=== PATIENT | male | born 1995 | race Caucasian/White ===

== ENCOUNTER 2017-10-19 14:02 | Emergency (ER) | payer OTHER ==
[2017-10-19 15:13] LABS: ABS Basophils 0.1 10^3/ul (0-0.2); ABS Eosinophils 0 10^3/ul (0-0.6); ABS Lymphocytes 1.2 10^3/ul (1.0-4.8); ABS Monocytes 0.5 10^3/ul (0-0.8); ABS Neutrophils 6.1 10^3/ul (1.5-7.7); ABS Nucleated RBC 0 10^3/ul; Eosinophil % 0.1 % (0-6); Hematocrit 37 % (42-52); Lymphocyte % 15.7 % (25-47); Mean Corpuscular HGB Conc 35 g/dl (31-36); Mean Corpuscular Hemoglobin 33 pg (27-31); Mean Corpuscular Volume 93 fL (80-94); Mean Platelet Volume 9.2 um3 (7.4-10.4); Nucleated Red Blood Cells % 0; Platelet Count 204 10^3/ul (150-450); Red Cell Distribution Width 13 % (10.5-15); White Blood Count 7.9 10^3/ul (3.5-10.8)
[2017-10-19 15:22] LABS: Urine Appearance Cloudy; Urine Blood Negative (Negative); Urine Color Yellow; Urine Ketones 1+ (Negative); Urine Protein 1+(30 mg/dL) (Negative); Urine Specific Gravity 1.028 (1.010-1.030); Urine Urobilinogen Negative (Negative)
[2017-10-19 15:28] LABS: EGFR Non-African American 127.5 (>60)
[2017-10-19] MEDS ORDERED: hydrOXYzine HCL TAB* 25 MG PO ONE (19:22)
[2017-10-19 20:17] VITALS: BP 116/64
--- NOTE | 2017-10-19 22:33 | ED ---
Phil Kelsey Stephanie, scribed for Cara Oswald MD on 10/19/17 at 1428 . Psychiatric Complaint - HPI Summary HPI Summary: The pt is a 22 y/o M BIBA to the ED with c/o anxiety that began today. The pt states he is stressed due to academics at [employer]. The pt states he was not realistically thinking about suicide. The pt was talking with a [employer] nurse who called the police who then notified EMS based on statements he made to her. Pt came to the ED voluntarily. The pt denies hx of mental health evaluation or consult in the past. The pt denies hx of self-harm. The pt denies CP, SOB, CLARKE and dizziness. The pt is a transgender pt who is in the process of transitioning to a female. - History Of Current Complaint Time Seen by Provider: 10/19/17 14:24 Hx Obtained From: Patient, EMS Onset/Duration: Gradual Onset, Lasting Hours, Still Present Timing: Constant Severity Initially: Moderate Severity Currently: Mild Character: Depressed Aggravating Factor(s): Recent Stress - academics Alleviating Factor(s): Nothing Associated Signs And Symptoms: Positive: Negative Related History: Negative For: Prior Psychiatric Issues, Drug Abuse Counseling, Admissions Related To Substance Abuse Has Suicidal: Reports: Thoughts - Allergies/Home Medications Allergies/Adverse Reactions: Allergies Allergy/AdvReac Type Severity Reaction Status Date / Time No Known Allergies Allergy Verified 10/19/17 14:22 Home Medications: Home Medications Spironolactone TAB* [Aldactone TAB 25 MG*] 100 mg PO DAILY 10/19/17 [History Confirmed 10/19/17] PMH/Surg Hx/FS Hx/Imm Hx Previously Healthy: Yes - transgender transitioning to female Sensory History: Denies: Hx Legally Blind EENT History: Denies: Hx Deafness - Surgical History Surgery Procedure, Year, and Place: FINGER SURGERY Infectious Disease History: Yes Infectious Disease History: Denies: Traveled Outside the [place] in Last 30 Days - Family History Known Family History: Positive: Other - back problems. Negative: SI and depression Negative: Diabetes - Social History Occupation: Student Lives: Dormitory/Roommates Alcohol Use: Occasionally Hx Substance Use: No Substance Use Type: Reports: None Hx Tobacco Use: No Review of Systems Negative: Fever Negative: Chest Pain Negative: Shortness Of Breath Gastrointestinal: Negative Neurological: Negative - dizziness Negative: Headache Positive: Depressed All Other Systems Reviewed And Are Negative: Yes Physical Exam - Summary Physical Exam Summary: Appearance: Well-appearing, no pain distress, Well-nourished, avoids eye contact Skin: Warm, color reflects adequate perfusion Head: Normal Head/Face inspection Eyes: Conjunctiva clear ENT: Normal inspection Neck: Supple, no nodes, no JVD. Respiratory: Lungs clear, Normal breath sounds, no respiratory distress Cardio: RRR, No murmur, pulses normal, brisk capillary refill Abdomen: soft, nontender Bowel sounds: present Musculoskeletal: Strength Intact/ ROM intact. No calf tenderness. No edema. Psychological: calm, cooperative Neuro: Alert, muscle tone normal, no focal deficit Triage Information Reviewed: Yes Vital Signs On Initial Exam: Initial Vitals Temp Pulse Resp BP Pulse Ox 99.2 F 71 18 121/76 100 10/19/17 14:14 10/19/17 14:14 10/19/17 14:14 10/19/17 14:14 10/19/17 14:14 Vital Signs Reviewed: Yes Diagnostics - Vital Signs Vital Signs Temp Pulse Resp BP Pulse Ox 10/19/17 14:14 99.2 F 71 18 121/76 100 - Laboratory Result Diagrams: 10/19/17 14:58 10/19/17 14:58 Lab Statement: Any lab studies that have been ordered have been reviewed, and results considered in the medical decision making process. Re-Evaluation - Re-Evaluation First Eval Re-Evaluation Time: 19:35 - pt feels ready for discharge, less stressed. Took hydroxyzine 25mg without adverse effect. Change: Improved Course/Dx - Course Course Of Treatment: At 15:50 the pt was medically cleared. Pt had MHE. Per Dr. Jc, pt stable for discharge, per Antonia, RN. Pt given hydroxyzine 25mg prior to DC for anxiety, and Rx sent for 6 more tabs to pt's pharmacy. Pt to follow up with [facility]. - Differential Dx/Clinical Impression Differential Diagnosis/HQI/PQRI: Positive: Anxiety, Depression, Suicidal Ideation Provider Diagnosis: Mood disorder Discharge - Sign-Out/Discharge Documenting (check all that apply): Discharge/Admit/Transfer - home to [employer] - Discharge Plan Condition: Stable Disposition: HOME Prescriptions: hydrOXYzine HCL TAB* [Atarax 25 MG TAB*] 25 mg PO QID PRN #6 tab PRN Reason: Anxiety Patient Education Materials: Mood Disorders (ED), Social Anxiety Disorder (ED) Referrals: [facility] - [facility] [Primary Care Provider] - As Soon As Possible Additional Instructions: RETURN TO THE ER FOR ANY NEW OR WORSENING SYMPTOMS - Billing Disposition and Condition Condition: STABLE Disposition: HOME The documentation as recorded by the Phil france Stephanie accurately reflects the service I personally performed and the decisions made by , Cara Oswald MD.
== END 2017-10-19 20:16 | disposition home or self-care (01) ==
LOC: ED 14:02
DX: F39 Unspecified mood [affective] disorder (principal); F64.0 Transsexualism
CPT/HCPCS: 36415; 80053; 80307; 80320; 80329; 81003; 81015; 84443; 85025; 99283; A9270-GY; G0480

== ENCOUNTER 2018-05-02 15:31 | Inpatient (IN) | payer OTHER ==
[2018-05-02] MEDS ORDERED: Nicotine Inhaler* 10 MG AMP INH PRN (15:46)
--- NOTE | 2018-05-02 15:47 | UC ---
Psychiatric Complaint HPI - History Of Current Complaint Stated Complaint: 941 Time Seen by Provider: 05/02/18 15:36 - Allergies/Home Medications Allergies/Adverse Reactions: Allergies Allergy/AdvReac Type Severity Reaction Status Date / Time No Known Allergies Allergy Verified 04/02/18 17:02 PMH/Surg Hx/FS Hx/Imm Hx - Surgical History Surgical History: Unable to Obtain/Confirm Surgery Procedure, Year, and Place: FINGER SURGERY - Family History Known Family History: Positive: Other - back problems. Negative: SI and depression Negative: Diabetes - Social History Alcohol Use: None Substance Use Type: None Smoking Status (MU): Never Smoked Tobacco - Immunization History Most Recent Influenza Vaccination: unknown Most Recent Pneumonia Vaccination: unknown Discharge - Discharge Plan Referrals: [facility] - [facility]A [Primary Care Provider] - - Attestation Statements Document Initiated by Scribe: Yes Documenting Scribe: Leana Bo Provider For Whom Scribe is Documenting (Include Credential): Dr. London Reyes MD Scribe Attestation: Leana Kelsey scribed for Dr. London Reyes MD on 05/02/18 at 1546.
--- NOTE | 2018-05-02 15:53 | ED ---
Psychiatric Complaint - HPI Summary HPI Summary: Level 5 caveat: Unable to obtain complete HPI due to AMS The pt is a 22 y/o transgender [id number] BIB[facility] to [facility] c/o of AMS since today. The pt gave the police and EMS incorrect personal information such as name and . The pt prefers she /her pronouns. She says her name is Herson and notes confusion, insomnia, and fatigue. The pt currently takes unidentified anti-insomnia medications. TShe has been previously hospitalized at [facility] and at [facility] for psychiatric issues. - History Of Current Complaint Chief Complaint: EDMentalHealth Time Seen by Provider: 05/02/18 15:36 Hx Obtained From: Patient, EMS, Other: - [facility] Police Hx From Patient Unobtainable Due To: Altered Mental Status Onset/Duration: Still Present Associated Signs And Symptoms: Positive: Confused Related History: Positive For: Prior Psychiatric Issues - Allergies/Home Medications Allergies/Adverse Reactions: Allergies Allergy/AdvReac Type Severity Reaction Status Date / Time No Known Allergies Allergy Verified 04/02/18 17:02 PMH/Surg Hx/FS Hx/Imm Hx Previously Healthy: No - Level 5 caveat: Unable to obtain complete Mhx due to AMS Endocrine/Hematology History: Denies: Hx Diabetes Cardiovascular History: Denies: Hx Hypertension Sensory History: Denies: Hx Contacts or Glasses, Hx Legally Blind, Hx Deafness, Hx Hearing Aid Opthamlomology History: Denies: Hx Contacts or Glasses, Hx Legally Blind Psychiatric History: Reports: Hx Attention Deficit Hyperactivity Disorder Denies: Hx Eating Disorder, Hx of Violent Episodes Against Others - Cancer History Cancer Type, Location and Year: None reported - Surgical History Surgery Procedure, Year, and Place: FINGER SURGERY Infectious Disease History: No Infectious Disease History: Denies: Traveled Outside the [place] in Last 30 Days - Family History Known Family History: Positive: Other - back problems. Negative: SI and depression Negative: Diabetes - Social History Occupation: Student Lives: With Family Alcohol Use: None Hx Substance Use: No Substance Use Type: Reports: None Hx Tobacco Use: No Smoking Status (MU): Never Smoked Tobacco - Additional Comments History Additional Comments: Mhx of insomnia Review of Systems - ROS Summary Review of Systems Summary: Level 5 caveat: Unable to obtain complete ROS due to AMS Constitutional: Other - Positive: Confusion, Insomnia Positive: Fatigue All Other Systems Reviewed And Are Negative: No Physical Exam - Summary Physical Exam Summary: Level 5 caveat: Unable to obtain complete PE due to AMS Appearance: The patient is well-nourished in no acute respiratory distress and in no acute pain. Skin: The skin is warm and dry and skin color reflects adequate perfusion. HEENT: The head is normocephalic and atraumatic. The pupils are equal and reactive. The conjunctivae are clear and without drainage. Nares are patent and without drainage. Mouth reveals moist mucous membranes and the throat is without erythema and exudate. The external ears are intact. The ear canals are patent and without drainage. The tympanic membranes are intact. Neck: The neck is supple with full range of motion and non-tender. There are no carotid bruits. There is no neck vein distension. Respiratory: Chest is non-tender. Lungs are clear to auscultation and breath sounds are symmetrical and equal. Cardiovascular: Heart is regular rate and rhythm. There is no murmur or rub auscultated. There is no peripheral edema and pulses are symmetrical and equal. Abdomen: The abdomen is soft and non-tender. There are normal bowel sounds heard in all four quadrants and there is no organomegaly palpated. Musculoskeletal: There is no back tenderness noted. Extremities are non-tender with full range of motion. There is good capillary refill. There is no peripheral edema or calf tenderness elicited. Neurological: Patient is alert and oriented to person, place and time. The patient has symmetrical motor strength in all four extremities. Cranial nerves are grossly intact. Deep tendon reflexes are symmetrical and equal in all four extremities. Psychiatric: The patient has an appropriate affect and does not exhibit any anxiety or depression. Triage Information Reviewed: Yes Vital Signs On Initial Exam: Initial Vitals Temp Pulse Resp BP Pulse Ox 99.1 F 87 19 129/71 99 05/02/18 15:37 05/02/18 15:37 05/02/18 15:37 05/02/18 15:37 05/02/18 15:37 Vital Signs Reviewed: Yes Diagnostics - Vital Signs Vital Signs Temp Pulse Resp BP Pulse Ox 05/02/18 15:37 99.1 F 87 19 129/71 99 - Laboratory Result Diagrams: 05/02/18 16:05 05/02/18 16:05 Lab Statement: Any lab studies that have been ordered have been reviewed, and results considered in the medical decision making process. Course/Dx - Course Course Of Treatment: 17:08- The pt has been medically cleared for a MHE - Differential Dx/Clinical Impression Provider Diagnosis: Histrionic personality, Gender dysphoria in adult, Bipolar 1 disorder Discharge - Sign-Out/Discharge Documenting (check all that apply): Sign-Out Patient Signing out patient TO: Karina Glaser - Discharge Plan Condition: Stable Referrals: [facility] [Primary Care Provider] - - Billing Disposition and Condition Condition: STABLE - Attestation Statements Document Initiated by Scribe: Yes Documenting Scribe: Leana Bo Provider For Whom Bradlyibgurmeet is Documenting (Include Credential): Dr. London Reyes MD Scribe Attestation: Leana Kelsey scribed for Dr. London Reyes MD on 05/02/18 at 2117. Scribe Documentation Reviewed: Yes Provider Attestation: The documentation as recorded by the bradlyibeLeana accurately reflects the service I personally performed and the decisions made by me, Dr. London Reyes MD
[2018-05-02 16:16] LABS: ABS Basophils 0.1 10^3/ul (0-0.2); ABS Eosinophils 0 10^3/ul (0-0.6); ABS Monocytes 0.5 10^3/ul (0-0.8); ABS Neutrophils 7.3 10^3/ul (1.5-7.7); ABS Nucleated RBC 0 10^3/ul; Eosinophil % 0.1 % (0-6); Hematocrit 36 % (42-52); Lymphocyte % 11.8 % (25-47); Mean Corpuscular HGB Conc 36 g/dl (31-36); Mean Corpuscular Hemoglobin 33 pg (27-31); Mean Corpuscular Volume 93 fL (80-94); Mean Platelet Volume 8.6 fL (7.4-10.4); Nucleated Red Blood Cells % 0; Platelet Count 211 10^3/ul (150-450); Red Blood Count 3.91 10^6/ul (4.00-5.40); Red Cell Distribution Width 13 % (10.5-15); White Blood Count 8.9 10^3/ul (3.5-10.8)
[2018-05-02 16:30] LABS: Urine Appearance Cloudy; Urine Blood Negative (Negative); Urine Color Yellow; Urine Ketones Negative (Negative); Urine Protein Negative (Negative); Urine Specific Gravity 1.024 (1.010-1.030); Urine Urobilinogen Negative (Negative)
[2018-05-02 16:40] LABS: EGFR Non-African American 131.5 (>60)
[2018-05-02] MEDS ORDERED: Mouth Piece, Nicotine* 1 EACH CARTRIDGE INH ONE (17:00)
--- NOTE | 2018-05-02 22:00 | ED ---
Progress - Progress Note Progress Note: Level 5 caveat: Unable to obtain complete HPI due to AMS The pt is a 22 y/o transgender [id number] BIB[facility]/o of AMS since today. The pt gave the police and EMS incorrect personal information such as name and . The pt prefers she /her pronouns. She says her name is Herson and notes confusion, insomnia, and fatigue. The pt currently takes unidentified anti-insomnia medications. TShe has been previously hospitalized at [facility] and at [facility] for psychiatric issues. Patient, pending a MHE, was signed out from Dr. Reyes to Dr. Glaser during a shift change Re-Evaluation - Re-Evaluation 1 Re-Evaluation Time: 01:30 Comment: Patient was given nicotine via an inhaler by the nurse. Course/Dx - Course Course Of Treatment: 17:08- The pt has been medically cleared for a MHE - Diagnoses Provider Diagnoses: Histrionic personality, Gender dysphoria in adult, Bipolar 1 disorder, Psychosis Discharge - Sign-Out/Discharge Documenting (check all that apply): Patient Departure - Involuntary admission, Receiving Sign-Out Receiving patient FROM: London Reyes - Pending MHE - Discharge Plan Condition: Stable Disposition: ADMITTED TO [facility] - Billing Disposition and Condition Condition: STABLE Disposition: Admitted to [facility] - Attestation Statements Document Initiated by Scribe: Yes Documenting Scribe: Dmitriy Jordan Provider For Whom Scribe is Documenting (Include Credential): Karina Glaser MD Scribe Attestation: Dmitriy Kelsey scribed for Karina Glaser MD on 05/03/18 at 0533. Scribe Documentation Reviewed: Yes Provider Attestation: The documentation as recorded by the Dmitriy france accurately reflects the service I personally performed and the decisions made by me, Karina Glaser MD
[2018-05-03] MEDS ORDERED: Acetaminophen TAB* 325 MG PO PRN (01:44)
[2018-05-03] MEDS ORDERED: Al Hydrox/Mg Hydrox/Simet LIQ* 30 ML UDC PO PRN (01:44)
[2018-05-03] MEDS: Vitamin THERAPEUTIC TAB PO SCH (11:39)
--- NOTE | 2018-05-03 19:58 | HP ---
HISTORY AND PHYSICAL: DATE OF ADMISSION: 05/03/18 ADDENDUM: This is an addendum to the previous history and physical on this patient dated 04/03/18. IDENTIFYING DATA: The patient is a 22-year-old, kezg-cy-hxjdcy transgender individual, who prefers to be called "Chalino" and the use of "she and her" when referring to her. She was brought in by [facility] because of acting erratically on campus and she was admitted on emergency status. HISTORY OF PRESENT ILLNESS: The patient had a recent admission here from to 04/17/18. She was discharged with referral to [facility] for monitoring of her hormone therapy and to her therapist in this community, Dahiana Gregorio LCSW. The patient was not discharged on any medications. On interview today, she reports that she did not keep any of the appointments made for her because she spent the entire time since discharge "running away and hiding from her mother." Per the patient, after discharge from the hospital, she went home in [place], [place], to "reconcile with her mother," this did not work, she left after a couple of days and returned to [facility] and to her dorm on campus. After returning on campus, she felt she had to constantly hide from her mother. She believes that her mother was calling [place] constantly and making false statements that she was suicidal, which she was not. Yesterday, as she was moving her stuff out of her dorm room to go live with 2 people in the community , to avoid her mother and she was also thinking about leaving [place]. [place] police approached her and she believes that her mother had called them and told them that she was suicidal. Notes indicate that the patient was disorganized in her thinking and behaving rather erratically, when asked for identification, she gave a fake name and date of . She was driven to this hospital for mental health evaluation during which she presented as rather delusional and tangential. She talked about her name being Chalino Askew, asked to contact her boyfriend to come pick her up. REVIEW OF PSYCHIATRIC SYMPTOMS: The patient described that after previous discharge she felt manic with decreased need for sleep and increased goal- directedness, running around, "doing unusual things", singing, putting a story on opvizoragram and hiding from her mother. She stopped attending her classes at [employer]. She expressed paranoidal ideation that everyone is corrupted by her mother and that [place] Police was influenced by her mother to bringing her to the hospital and emergency room doctor was influenced by her mother to get her admitted and that this technical document writer was corrupted to keeping her here against her will. The patient denied recent use of alcohol or drugs. Her urine drug screen was negative for all the tested substances. The patient asserted that she had continued taking prescribed spironolactone and estrogen. MENTAL STATUS EXAMINATION: Finds a 22-year-old, msxh-vj-symuic transgendered young adult with shoulder length black hair, who looks her stated age. She is adequately groomed. She is casually dressed. She makes fair eye contact. She is polite. She exhibit normal psychomotor activity. Speech has a pressured quality. Affect is irritable. Mood is dysphoric. Thought process is circumstantial with paranoid delusions that everyone is corrupted by her mother. She denies auditory or visual hallucinations. She avidly denies suicidal ideation or urges to self-mutilate and she contracts for safety. Insight and judgment are limited. Impulse control is tenuous in this setting. She is alert, oriented to time, place, person. Attention, memory, and concentration are all fair. SUMMARY: Readmission at fairly close interval for this 22-year-old male-to- female transgender individual with history of gender dysphoria, previous diagnosis of unspecified psychosis, nonadherence to outpatient psychiatric treatment, who was brought in by [facility] by police because of disorganized, erratic behavior and she was admitted on emergency status. Medical history is noncontributory. The patient has family history of anxiety in a paternal aunt, bipolar and schizophrenia in paternal grandfather. Although she has a past history of substance use, she denies that that had been the case since last discharge and her urine drug screen was negative. She described as her main stressor her strained relationship with her biological mother, and needing to relocate to be away from her. She listed additional stressors of failing her classes and possibly dropping out of college. DIAGNOSTIC IMPRESSIONS: Unspecified psychotic disorder. Rule out Bipolar disorder, current episode manic, severe, with psychotic features. Gender identity disorder. TREATMENT PLAN: Admit to mental health unit, 15-minute checks, full code status. Legal status is emergency. Initiate comprehensive milieu, individual, and group psychotherapeutic support. Medication management will involve possibly starting the patient on an atypical antipsychotic with her informed consent. She declined any trial of medication at the time of our interview citing lack of need, but she should be encouraged to reconsider. Discharge planning would involve coordination of aftercare with her outpatient psychiatric providers. [id number]/CPS #: [id number] CAR[place]
[2018-05-04] MEDS: Vitamin THERAPEUTIC TAB PO SCH (09:13)
--- NOTE | 2018-05-04 11:44 | PN ---
Subjective - Subjective Date of Service: 05/04/18 Service Type: 80415 Hosp care 35 min high complexity Subjective: Romy displays multiple symptoms of bipolar sayra today during our session. She is oddly and ostentatiously dressed, having cut paper scrubs into bands that she has tied into effeminate bows on her head and wrist. She is hyperkinetic and hyperverbal and talks quite at length in a tangential, grandiose and delusional way about having personal relationships with the silva Emily Bauer and actor Wilder Askew. "They want me to be happy and get out of here, while you and Elizabeth [nurse practitioner] are jealous of me and want to keep me here." She voices persecutory delusions towards her mother, saying "My mother has me enslaved at [employer]. She put me there to control me." Collateral information from Romy's mother indicate that she has been disruptive in classes when she did go and sent inappropriate emails to her professors. The patient does not deny this, stating "My professors dislike me and are harassing me. They like to torment me in front of the class." She indicates that she knows more about her school subjects than her professors. 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 For Halloween I dressed as a combination of Emily Bauer and Mother Nature...people knew exactly who I was." She repeatedly endorses ideas of reference, saying that Emily's Twitter feed includes statements directly and specifically in support of her. She denies SI or HI. She declines medications, saying, "I care about what I put in my body. I am perfectly healthy. I'm not interested in your medication." Objective - Appearance Appearance: Thin Framed Dysmorphic Features: No Hygiene: Normal Grooming: Fairly Well Kept - Behavior Psychomotor Activities: Abnormal-Increased Exhibits Abnormal Movement: No - Attitude and Relatedness Attitude and Relatedness: Psychotically Related Eye Contact: Poor - Speech Quality: Pressured Latencies: Short Quantity: Copious - Mood Patient's Decription of Mood: "Great" - Affect Observed Affect: Euphoric Affect Consistent with: Euphoria - Thought Process Patient's Thought Process: Filght of Ideas Thought Content: Yes Paranoid Ideation, No Passive Wish, No Suicidal Planning, No Homicidal Ideation - Sensorium Experiencing Hallucinations: No, Sensorium is Clear Type of Hallucinations: Visual: No, Auditory: No, Command: No - Level of Consciousness Level of Consciousness: Alert Orientation: Yes Intact, Yes Orientated to Time, Yes Orientated to Place, Yes Orientated to Person - Impulse Control Impulse Control: Poor - Insight and Judgement Insight and Judgement: Impaired - Group Participation Particating in Group Activities: No - Medication Management Medication Management Adherence: No Assessment - Assessment Merits Inpatient Hospitalization: For Immediate Safety, For Stabilization Inpatient DSM-V Dx: F31.13 Clinical Impression: 22 y.o. 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 MHU: Problem List - Patient Problems (1) Bipolar 1 disorder Current Visit: Yes Status: Acute Priority: High Code(s): F31.9 - BIPOLAR DISORDER, UNSPECIFIED SNOMED Code(s): 967907185 Plan - Plan Treatment Plan: Name: CHUCK GRUBBS Birthdate: 1995 [id number] The patient will be prescribed Depakote 500mg PO BID and Invega 6mg PO qhs in the hopes that she will be adherent with the medications and improve. We will initiate T.O.O. proceedings in the event that she does not adhere with treatment. Continue to treat on an involuntary inpatient basis. Continued Medication Management: Start Medication Medications: Current Medications Acetaminophen (Tylenol Tab*) 650 mg PO Q4H PRN PRN Reason: PAIN or TEMP > 101 F Al Hydrox/Mg Hydrox/Simethicone (Maalox Plus*) 30 ml PO Q4H PRN PRN Reason: INDIGESTION Divalproex Sodium (Depakote Dr Tab(*)) 500 mg PO BID [facility] Multivitamins (Theragran Tab*) 1 tab PO DAILY [facility] Last Admin: 05/04/18 09:13 Dose: 1 tab Nicotine (Nicotine Inhaler*) 10 mg INH Q2H PRN PRN Reason: CRAVING Paliperidone (Invega Er Tab*) 6 mg PO BEDTIME [facility] - Discharge Plan Discharge Plan: Inpatient Hospitalization Lab Results - Lab Results Lab Results: 05/02/18 05/02/18 05/02/18 16:05 16:05 16:08 WBC 8.9 RBC 3.91 L Hgb 13.0 L Hct 36 L MCV 93 MCH 33 H MCHC 36 RDW 13 Plt Count 211 MPV 8.6 Neut % (Auto) 82.1 Lymph % (Auto) 11.8 L Wilcox % (Auto) 5.4 Eos % (Auto) 0.1 Baso % (Auto) 0.6 Absolute Neuts (auto) 7.3 Absolute Lymphs (auto) 1.0 Absolute Monos (auto) 0.5 Absolute Eos (auto) 0 Absolute Basos (auto) 0.1 Absolute Nucleated RBC 0 Nucleated RBC % 0 Sodium 136 Potassium 3.5 Chloride 102 Carbon Dioxide 28 Anion Gap 6 BUN 13 Creatinine 0.75 Est GFR ( Amer) 159.1 Est GFR (Non-Af Amer) 131.5 BUN/Creatinine Ratio 17.3 Glucose 107 H Hemoglobin A1c Calcium 9.8 Total Bilirubin 0.70 AST 10 L ALT 7 Alkaline Phosphatase 37 Total Protein 7.1 Albumin 4.8 Globulin 2.3 Albumin/Globulin Ratio 2.1 Triglycerides Cholesterol LDL Cholesterol HDL Cholesterol TSH 0.94 Urine Color Yellow Urine Appearance Cloudy Urine pH 6.0 Ur Specific [place] 1.024 Urine Protein Negative Urine Ketones Negative Urine Blood Negative Urine Nitrate Negative Urine Bilirubin Negative Urine Urobilinogen Negative Ur Leukocyte Esterase Negative Urine Glucose Negative Salicylates < 2.50 Urine Opiates Screen Acetaminophen < 15 Ur Barbiturates Screen Ur Phencyclidine Scrn Ur Amphetamines Screen U Benzodiazepines Scrn Urine Cocaine Screen U Cannabinoids Screen Serum Alcohol < 10 05/02/18 05/04/18 05/04/18 16:08 07:13 07:13 WBC RBC Hgb Hct MCV MCH MCHC RDW Plt Count MPV Neut % (Auto) Lymph % (Auto) Wilcox % (Auto) Eos % (Auto) Baso % (Auto) Absolute Neuts (auto) Absolute Lymphs (auto) Absolute Monos (auto) Absolute Eos (auto) Absolute Basos (auto) Absolute Nucleated RBC Nucleated RBC % Sodium Potassium Chloride Carbon Dioxide Anion Gap BUN Creatinine Est GFR ( Amer) Est GFR (Non-Af Amer) BUN/Creatinine Ratio Glucose Hemoglobin A1c 4.9 Calcium Total Bilirubin AST ALT Alkaline Phosphatase Total Protein Albumin Globulin Albumin/Globulin Ratio Triglycerides 46 Cholesterol 120 LDL Cholesterol 40 HDL Cholesterol 70.9 TSH Urine Color Urine Appearance Urine pH Ur Specific [place] Urine Protein Urine Ketones Urine Blood Urine Nitrate Urine Bilirubin Urine Urobilinogen Ur Leukocyte Esterase Urine Glucose Salicylates Urine Opiates Screen None detected Acetaminophen Ur Barbiturates Screen None detected Ur Phencyclidine Scrn None detected Ur Amphetamines Screen None detected U Benzodiazepines Scrn None detected Urine Cocaine Screen None detected U Cannabinoids Screen None detected Serum Alcohol
[2018-05-04] MEDS: Paliperidone ER TAB* 6 MG TAB.ER PO SCH (23:03)
[2018-05-04] MEDS: Divalproex DR TAB(*) 500 MG PO SCH (23:03)
[2018-05-05] MEDS: Divalproex DR TAB(*) 500 MG PO SCH ×2 (09:16→23:14)
[2018-05-05] MEDS: Vitamin THERAPEUTIC TAB PO SCH (09:16)
--- NOTE | 2018-05-05 20:45 | PN ---
Subjective - Subjective Date of Service: 05/05/18 Service Type: [id number] Hosp care 15 min low complexity Subjective: "Romy" is seen in coverage for Dr. Benja Mann. Romy is interested in sending the message to her treatment team: "Go ahead and IM me, so I know it' s them and not me...if I'm really that manic and bipolar." She also invoked the name of Emily Bauer and another celebrity with whom she would like to identify herself as they are full of love and that is what she would like to be associated with: "Love, love, love." This morning she was wearing blue paper scrubs with a blue paper scrub choker, which was encouraged to be removed. She also discussed her history of three eating disorders and her difficult relationship with her mother. Objective - Appearance Appearance: Healthy Appearing Dysmorphic Features: No Hygiene: Normal Grooming: Well Kept - Behavior Psychomotor Activities: Normal Exhibits Abnormal Movement: No - Attitude and Relatedness Attitude and Relatedness: Superficially Cooperative Eye Contact: Fair - Speech Quality: Unpressured Latencies: Normal Quantity: Copious - Mood Patient's Decription of Mood: "Fine" - Affect Observed Affect: Expansive Affect Consistent with: Dysphoria - Thought Process Patient's Thought Process: Loose Associations, Filght of Ideas Thought Content: No Passive Wish, No Suicidal Planning, No Homicidal Ideation, No Paranoid Ideation - Sensorium Experiencing Hallucinations: No, Sensorium is Clear Type of Hallucinations: Visual: No, Auditory: No, Command: No - Level of Consciousness Level of Consciousness: Agitated Orientation: Yes Intact, Yes Orientated to Time, Yes Orientated to Place, Yes Orientated to Person - Impulse Control Impulse Control: Impaired - Insight and Judgement Insight and Judgement: Poor - Group Participation Particating in Group Activities: No - Medication Management Medication Management Adherence: No Assessment - Assessment Inpatient DSM-V Dx: F31.13 Clinical Impression: 22 y.o. 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 Plan - Plan Treatment Plan: Name: CHUCK GRUBBS Birthdate: 1995 [id number] Medications: Current Medications Acetaminophen (Tylenol Tab*) 650 mg PO Q4H PRN PRN Reason: PAIN or TEMP > 101 F Al Hydrox/Mg Hydrox/Simethicone (Maalox Plus*) 30 ml PO Q4H PRN PRN Reason: INDIGESTION Divalproex Sodium (Depakote Dr Tab(*)) 500 mg PO BID [facility] Last Admin: 05/05/18 09:16 Dose: Not Given Multivitamins (Theragran Tab*) 1 tab PO DAILY [facility] Last Admin: 05/05/18 09:16 Dose: Not Given Nicotine (Nicotine Inhaler*) 10 mg INH Q2H PRN PRN Reason: CRAVING Paliperidone (Invega Er Tab*) 6 mg PO BEDTIME [facility] Last Admin: 05/04/18 23:03 Dose: Not Given
[2018-05-05] MEDS: Paliperidone ER TAB* 6 MG TAB.ER PO SCH (23:14)
[2018-05-06] MEDS: Divalproex DR TAB(*) 500 MG PO SCH ×2 (09:53→22:17)
[2018-05-06] MEDS: Vitamin THERAPEUTIC TAB PO SCH (09:53)
--- NOTE | 2018-05-06 11:11 | PN ---
Subjective - Subjective Date of Service: 05/06/18 Service Type: [id number] Hosp care 25 min moderate complexity Subjective: Romy continues to present as manic with symptoms such as distractability, inappropriate behavior, grandiosity, flight of ideas, hyperkinesis, sleeplessness and pressured speech. Today, during our staff treatment team meeting, the patient pal herself outside in the hallway, visible through the windows, making ostentatious, bizarre, attention-seeking displays by placing photos of celebrities she's obsessed with on the window phani of the wellness room and bowing to them while intermittently making twirling movements, yelling "Look at me!" On exam she is difficult to interrupt, going on a tangent about how her mother is "trying to kill me." She is refusing medications and has no insight into her illness. Objective - Appearance Appearance: Thin Framed Dysmorphic Features: No Hygiene: Normal Grooming: Fairly Well Kept - Behavior Psychomotor Activities: Abnormal-Increased Exhibits Abnormal Movement: No - Attitude and Relatedness Attitude and Relatedness: Psychotically Related Eye Contact: Good - Speech Quality: Pressured Latencies: Short Quantity: Copious - Mood Patient's Decription of Mood: "Great" - Affect Observed Affect: Expansive Affect Consistent with: Euphoria - Thought Process Patient's Thought Process: Filght of Ideas Thought Content: Yes Paranoid Ideation, No Passive Wish, No Suicidal Planning, No Homicidal Ideation - Sensorium Experiencing Hallucinations: No, Sensorium is Clear Type of Hallucinations: Visual: No, Auditory: No, Command: No - Level of Consciousness Level of Consciousness: Alert Orientation: Yes Intact, Yes Orientated to Time, Yes Orientated to Place, Yes Orientated to Person - Impulse Control Impulse Control: Poor - Insight and Judgement Insight and Judgement: Impaired - Group Participation Particating in Group Activities: No - Medication Management Medication Management Adherence: No Assessment - Assessment Merits Inpatient Hospitalization: For Immediate Safety, For Stabilization Inpatient DSM-V Dx: F31.13 Clinical Impression: 22 y.o. 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 MHU: Problem List - Patient Problems (1) Bipolar 1 disorder Current Visit: Yes Status: Acute Priority: High Code(s): F31.9 - BIPOLAR DISORDER, UNSPECIFIED SNOMED Code(s): 070425585 Plan - Plan Treatment Plan: Name: CHUCK GRUBBS Birthdate: 1995 [id number] The patient is not adhering with recommended Depakote 500mg PO BID and Invega 6mg PO qhs. We will initiate T.O.O. proceedings. Continue to treat on an involuntary inpatient basis. Continued Medication Management: Start Medication Medications: Current Medications Acetaminophen (Tylenol Tab*) 650 mg PO Q4H PRN PRN Reason: PAIN or TEMP > 101 F Al Hydrox/Mg Hydrox/Simethicone (Maalox Plus*) 30 ml PO Q4H PRN PRN Reason: INDIGESTION Divalproex Sodium (Depakote Dr Tab(*)) 500 mg PO BID [facility] Last Admin: 05/06/18 09:53 Dose: Not Given Multivitamins (Theragran Tab*) 1 tab PO DAILY [facility] Last Admin: 05/06/18 09:53 Dose: Not Given Nicotine (Nicotine Inhaler*) 10 mg INH Q2H PRN PRN Reason: CRAVING Paliperidone (Invega Er Tab*) 6 mg PO BEDTIME [facility] Last Admin: 05/05/18 23:14 Dose: Not Given - Discharge Plan Discharge Plan: Inpatient Hospitalization
--- NOTE | 2018-05-06 17:23 | PN ---
MHU: Group Therapy Note - Service Type Service Type: [id number] Group Psychotherapy - Medication Education Group: Patient was attentive and participatory in group, and remained in good behavioral control. Patient expressed positive insights regarding relevant treatment interventions. Patient stated understanding of material discussed and had appropriate questions. Patient receptive to redirection when disruptive and attention-seeking.
[2018-05-06] MEDS: Paliperidone ER TAB* 6 MG TAB.ER PO SCH (22:17)
--- NOTE | 2018-05-07 10:18 | PN ---
Subjective - Subjective Date of Service: 05/07/18 Service Type: [id number] Hosp care 15 min low complexity Subjective: Romy remains manic and attention seeking. She is taking us to court tomorrow for retention, whereas we are pursuing Treatment Over Objection. She remains nonadherent with group therapy or medication and delusional about celebrities. She is also quite paranoid about her parents, accusing them of persecuting her. Objective - Appearance Appearance: Thin Framed Dysmorphic Features: No Hygiene: Normal Grooming: Fairly Well Kept - Behavior Psychomotor Activities: Abnormal-Increased Exhibits Abnormal Movement: No - Attitude and Relatedness Attitude and Relatedness: Psychotically Related Eye Contact: Fair - Speech Quality: Pressured Latencies: Short Quantity: Copious - Mood Patient's Decription of Mood: "Great" - Affect Observed Affect: Expansive Affect Consistent with: Euphoria - Thought Process Patient's Thought Process: Tangential Thought Content: Yes Paranoid Ideation, No Passive Wish, No Suicidal Planning, No Homicidal Ideation - Sensorium Experiencing Hallucinations: No, Sensorium is Clear Type of Hallucinations: Visual: No, Auditory: No, Command: No - Level of Consciousness Level of Consciousness: Alert Orientation: Yes Intact, Yes Orientated to Time, Yes Orientated to Place, Yes Orientated to Person - Impulse Control Impulse Control: Poor - Insight and Judgement Insight and Judgement: Impaired - Group Participation Particating in Group Activities: No - Medication Management Medication Management Adherence: No Assessment - Assessment Merits Inpatient Hospitalization: For Immediate Safety, For Stabilization Inpatient DSM-V Dx: F31.13 Clinical Impression: 22 y.o. 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 MHU: Problem List - Patient Problems (1) Bipolar 1 disorder Current Visit: Yes Status: Acute Priority: High Code(s): F31.9 - BIPOLAR DISORDER, UNSPECIFIED SNOMED Code(s): 928638245 Plan - Plan Treatment Plan: Name: CHUCK GRUBBS Birthdate: 1995 [id number] The patient is not adhering with recommended Depakote 500mg PO BID and Invega 6mg PO qhs. We have court scheduled tomorrow (05/08) at 14:00 for T.O.O. proceedings. Continue to treat on an involuntary inpatient basis. Continued Medication Management: Start Medication Medications: Current Medications Acetaminophen (Tylenol Tab*) 650 mg PO Q4H PRN PRN Reason: PAIN or TEMP > 101 F Al Hydrox/Mg Hydrox/Simethicone (Maalox Plus*) 30 ml PO Q4H PRN PRN Reason: INDIGESTION Divalproex Sodium (Depakote Dr Tab(*)) 500 mg PO BID [facility] Last Admin: 05/06/18 22:17 Dose: Not Given Multivitamins (Theragran Tab*) 1 tab PO DAILY [facility] Last Admin: 05/06/18 09:53 Dose: Not Given Nicotine (Nicotine Inhaler*) 10 mg INH Q2H PRN PRN Reason: CRAVING Paliperidone (Invega Er Tab*) 6 mg PO BEDTIME [facility] Last Admin: 05/06/18 22:17 Dose: Not Given - Discharge Plan Discharge Plan: Inpatient Hospitalization
[2018-05-07] MEDS: Vitamin THERAPEUTIC TAB PO SCH (11:24)
[2018-05-07] MEDS: Divalproex DR TAB(*) 500 MG PO SCH ×2 (11:24→23:09)
[2018-05-07] MEDS: Paliperidone ER TAB* 6 MG TAB.ER PO SCH (23:09)
[2018-05-08 08:03] VITALS: BP 125/86
[2018-05-08] MEDS: Vitamin THERAPEUTIC TAB PO SCH (09:29)
[2018-05-08] MEDS: Divalproex DR TAB(*) 500 MG PO SCH (09:29)
--- NOTE | 2018-05-08 12:32 | PN ---
Subjective - Subjective Date of Service: 05/08/18 Service Type: 88719 Hosp care 15 min low complexity Subjective: Romy had a challenging evening last night, running and twirling her body through the unit wearing blue paint on her face. She was resistant to staff attempts to redirect her. On exam we discuss the pending court hearing this afternoon for retention and treatment over objection. "I don't need your medications. I talked with Idris Reykari and he told me that all I need is music, art and love to cure myself." She continues to present with a flamboyant interpersonal style and attention-seeking mannerisms that correspond with an absence of insight into her situation and mental health status. I did discuss the medications Depakote and Invega, which she is dismissive of. I described my rationale for pursuing treatment over her objection and she says " I respectfully disagree." Objective - Appearance Appearance: Thin Framed Dysmorphic Features: No Hygiene: Normal Grooming: Well Kept - Behavior Psychomotor Activities: Abnormal-Increased Exhibits Abnormal Movement: No - Attitude and Relatedness Attitude and Relatedness: Psychotically Related Eye Contact: Fair - Speech Quality: Pressured Latencies: Short Quantity: Copious - Mood Patient's Decription of Mood: "Great" - Affect Observed Affect: Euphoric Affect Consistent with: Euphoria - Thought Process Patient's Thought Process: Tangential Thought Content: No Passive Wish, No Suicidal Planning, No Homicidal Ideation, No Paranoid Ideation - Sensorium Experiencing Hallucinations: No, Sensorium is Clear Type of Hallucinations: Visual: No, Auditory: No, Command: No - Level of Consciousness Level of Consciousness: Alert Orientation: Yes Intact, Yes Orientated to Time, Yes Orientated to Place, Yes Orientated to Person - Impulse Control Impulse Control: Poor - Insight and Judgement Insight and Judgement: Impaired - Group Participation Particating in Group Activities: No - Medication Management Medication Management Adherence: No Assessment - Assessment Merits Inpatient Hospitalization: For Immediate Safety, For Stabilization Inpatient DSM-V Dx: F31.13 Clinical Impression: 22 y.o. 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 MHU: Problem List - Patient Problems (1) Bipolar 1 disorder Current Visit: Yes Status: Acute Priority: High Code(s): F31.9 - BIPOLAR DISORDER, UNSPECIFIED SNOMED Code(s): 531069058 Plan - Plan Treatment Plan: Name: CHUCK GRUBBS Birthdate: 1995 [id number] The patient is not adhering with recommended Depakote 500mg PO BID and Invega 6mg PO qhs. We have court scheduled today (05/08) at 14:00 for T.O.O. proceedings. Continue to treat on an involuntary inpatient basis. Continued Medication Management: Start Medication Medications: Current Medications Acetaminophen (Tylenol Tab*) 650 mg PO Q4H PRN PRN Reason: PAIN or TEMP > 101 F Al Hydrox/Mg Hydrox/Simethicone (Maalox Plus*) 30 ml PO Q4H PRN PRN Reason: INDIGESTION Divalproex Sodium (Depakote Dr Tab(*)) 500 mg PO BID [facility] Last Admin: 05/08/18 09:29 Dose: Not Given Multivitamins (Theragran Tab*) 1 tab PO DAILY [facility] Last Admin: 05/08/18 09:29 Dose: Not Given Nicotine (Nicotine Inhaler*) 10 mg INH Q2H PRN PRN Reason: CRAVING Paliperidone (Invega Er Tab*) 6 mg PO BEDTIME [facility] Last Admin: 05/07/18 23:09 Dose: Not Given - Discharge Plan Discharge Plan: Inpatient Hospitalization
--- NOTE | 2018-05-09 08:56 | DS ---
DISCHARGE SUMMARY: DATE OF ADMISSION: 05/03/18 DATE OF DISCHARGE: 05/08/18 DISCHARGE DIAGNOSES: Warren I: Bipolar disorder type I, most recent episode manic, severe, with psychotic features. Warren II: Deferred. CONDITION AT THE TIME OF DISCHARGE: Guarded. The patient remains hypomanic, distractible, intrusive, calling attention to herself; however, we have been taken to court and the [facility] judge issued a decision that the patient does not warrant further inpatient treatment because she does not meet the standards for dangerousness to self or others. For this reason, we are legally obligated to discharge her. She is refusing medications. The patient will not sign releases of information and therefore we are not able to render any discharge planning. We will provide the patient with a followup appointment at the [facility] treatment program; however, she is stating that she is not necessarily interested in attending this. MENTAL STATUS EXAM AT THE TIME OF DISCHARGE: The patient is a young extremely slender lyef-ed-kkloes transgender who is dressed in a sweater with long brown hair and brown eyes. She is calm, cooperative, sits with excellent posture. Speech has a normal rate, tone, and volume. Mood is hypomanic with an expansive affect. Thought process is linear to tangential. Thought content is significant for her insistence on leaving the hospital and not taking psychotropic medications. The patient is currently denying previous delusional statements that she is in a relationship with Emily Bauer, the silva. She denies auditory or visual hallucinations. Insight and judgment are poor given her unwillingness to take indicated medications. Cognitively, she is awake and alert with what would appear to be an average intellect. DISCHARGE INSTRUCTIONS TO THE PATIENT: Are as follows: Part A: Medications: None. Part B: Diet: Regular. Part C: Activities: As tolerated. The patient is a nonsmoker. There are no laboratory or diagnostic studies pending at the time of discharge. Part D: Followup care: The patient will be granted an appointment at [facility]; however, it is dubious as to whether she will accept this. Part E: Substance abuse followup: Nonapplicable. 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 It is alleged by her family that following discharge , she ran away from her mother, returned to the [facility], and had been acting in a bizarre intrusive fashion. My understanding is that a campus meat team member was alarmed by the patient's disruptive and incoherent behavior and called campus security for a wellness check. When they arrived, they found her disorganized and unable to care for herself and she was brought back to the hospital where she was hospitalized on involuntary 9.39 legal status. Part B: Psychiatric treatment rendered: The patient was admitted to the adult behavioral health unit and placed on q.15-minute checks for her own safety. We attempted to treat her with a combination of Depakote and Invega; however, she flatly declined these, stating that all she needed was art, love, and music to get well. She was extremely disorganized on our unit, often dressing bizarrely , cutting up scrubs and making ribbons for her hair, her neck, and wrists, running and twirling her body flamboyantly around the unit attempting to distract the treatment team during its normal business. We were concerned enough to take her to court for treatment over objection while the patient was seeking a release from the finance assistant. The finance assistant, Hon. Chris Nicholas, decided that the hospital had not met its burden to demonstrate that the patient was an imminent risk to herself or others and determined that she did not meet the legal standards for continued involuntary care. It was his decision to allow her to leave and at this point we are legally obligated to discharge her. Although her parents are not on the release of information, as a courtesy, I did call them to let them know of the finance assistant's decision, which they adamantly disagreed with. However, her mother, Pretty, expressed understanding of the difficult legal situation. At this time, the patient is stating that her plan is to return to the [facility] to reside with her elderly grandmother. She is not willing to allow us to make any further appointments in that area. We did make a followup at [employer], although she is stating that she wishes to withdraw from that school and not pursue an academic degree at this time. This is the difficult situation and I cannot say with certainty that the patient is safe, particularly to herself, but I am obligated to discharge her. [id number]/[facility] #: [id number] CARMEN
== END 2018-05-08 18:30 | disposition home or self-care (01) | DRG 885 ==
LOC: ED 15:31 → BSU 05-03 01:09
PROVIDERS: ADMIT Psychiatry & Neurology Psychiatry; ATTEND Psychiatry & Neurology Psychiatry
PROC: GZHZZZZ Group Psychotherapy (ICD-10-PCS; principal; 2018-05-06)
DX: F31.2 Bipolar disorder, current episode manic severe with psychotic features (principal); F64.9 Gender identity disorder, unspecified; Z91.19 Patient's noncompliance with other medical treatment and regimen; Z81.8 Family history of other mental and behavioral disorders; Z91.14 Patient's other noncompliance with medication regimen
CPT/HCPCS: 36415; 80053; 80061; 80307; 80320; 80329; 81003; 83036; 84443; 85025; 90853; 99222; 99231; 99232; 99233; 99285; A9270-GY; G0480